=== PATIENT | male | born 2005 | race African-American/Black ===

== ENCOUNTER 2024-10-31 10:36 | Emergency (ER) | payer MEDICARE ==
[2024-10-31 10:40] VITALS: PULSE 72; RESP 20; TEMP 98.6
[2024-10-31] MEDS ORDERED: TIZANIDINE HCL4 M1 PO (11:22)
[2024-10-31 12:08] VITALS: BP 135/74; PULSE 70; RESP 18; TEMP 98.7; O2SAT 96
== END 2024-10-31 11:57 | disposition home or self-care (01) ==
LOC: FSED 10:42
DX: M62.831 Muscle spasm of calf (principal); F31.9 Bipolar disorder, unspecified; F90.9 Attention-deficit hyperactivity disorder, unspecified type
CPT/HCPCS: 80048; 80076; 81003; 85025; 85379; 99284